=== PATIENT | female | born 1995 | race Caucasian/White ===

== ENCOUNTER 2019-04-05 06:02 | Emergency (ER) | payer MEDICAID ==
[~2019-04-05] VITALS: Ht 167.6 cm; Wt 73.0 kg
[2019-04-05] MEDS ORDERED: SODIUM CHLORIDE 0.9% 1,000 ML IV ONE (06:27)
[2019-04-05] MEDS ORDERED: LEVETIRACETAM 1000MG/100ML 100 ML IV ONE (06:30)
[2019-04-05 07:04] LABS: CLARITY URINE CLOUDY (CLEAR); COLOR URINE RED (YELLOW); KETONES URINE 1+ (NEGATIVE); LEUKOCYTE ESTERASE URINE TRACE (NEGATIVE); NITRITE URINE NEGATIVE (NEGATIVE); OCCULT BLOOD URINE 3+ (NEGATIVE); PH URINE >=9.0 (4.5-8.0); PROTEIN URINE TRACE (NEGATIVE); SPECIFIC GRAVITY URINE 1.008 (1.005-1.030); UROBILINOGEN URINE 0.2 E.U./dL (0.2-1.0)
[2019-04-05 07:18] LABS: *AMPHETAMINES SCREEN URINE NEGATIVE (NEGATIVE); *BARBITURATES SCREEN URINE NEGATIVE (NEGATIVE); *BENZODIAZEPINES SCREEN URINE NEGATIVE (NEGATIVE); *COCAINE SCREEN URINE NEGATIVE (NEGATIVE); METHADONE URINE SCREEN NEGATIVE (NEGATIVE); OPIATES URINE SCREEN NEGATIVE (NEGATIVE)
[2019-04-05 07:19] LABS: PHENCYCLIDINE URINE SCREEN NEGATIVE (NEGATIVE)
[2019-04-05 07:24] LABS: CANNABINOID URINE SCREEN PRESUMTIVE POSITIVE (NEGATIVE)
[2019-04-05 08:28] LABS: BASOPHILS % 0.5 % (0.0-2.0); HEMATOCRIT. 30.7 % (36.0-48.0); HEMOGLOBIN. 10.7 g/dL (12.0-16.0); MEAN CORPUSCULAR HEMOGLOBIN 30.1 pg (28.0-32.0); MEAN PLATELET VOLUME 8.3 fl (7.4-10.4); MONOCYTES % 12.7 % (2.0-8.0); NEUTROPHILS % 71.8 % (40.0-76.0); PLATELET 309 x1000/uL (130-400); RED BLOOD CELL COUNT 3.57 mill/uL (4.2-5.4); RED CELL DISTRIBUTION WIDTH 13.5 % (11.6-14.6)
[2019-04-05 08:31] LABS: CHLORIDE 112 mEq/L (98-107)
[2019-04-05 08:34] LABS: ETHANOL BLOOD < 10 mg/dL
[2019-04-05 08:44] LABS: HCG SCREEN NEGATIVE
[2019-04-05] MEDS ORDERED: POTASSIUM CHLORIDE 20MEQ TABLET SR PO ONE (09:15)
[2019-04-05] MEDS ORDERED: KETOROLAC 30MG/ML VIAL IV ONE (09:15)
[2019-04-05 11:50] VITALS: BP 112/72
== END 2019-04-05 11:53 | disposition home or self-care (01) ==
LOC: ER 06:02
DX: S16.1XXA Strain of muscle, fascia and tendon at neck level, initial encounter (principal); R56.9 Unspecified convulsions; N39.0 Urinary tract infection, site not specified; M54.9 Dorsalgia, unspecified; X58.XXXA Exposure to other specified factors, initial encounter; Y93.89 Activity, other specified; Y92.89 Other specified places as the place of occurrence of the external cause; Y99.8 Other external cause status
CPT/HCPCS: 36415; 72125; 80053; 80305; 80320; 81003; 81025; 84703; 85025; 96365; 96375; 99284; J1885; J1953; J7030; G0480